=== PATIENT | female | born 1990 | race Caucasian/White ===

== ENCOUNTER 2017-08-29 05:58 | Emergency (ER) | payer OTHER ==
[~2017-08-29] VITALS: Ht 152.4 cm; Wt 59.0 kg
[2017-08-29 06:07] VITALS: Ht 152.4 cm; Wt 59.0 kg
[2017-08-29 07:06] VITALS: BP 106/50
== END 2017-08-29 07:06 | disposition home or self-care (01) ==
LOC: ED 05:58
DX: J09.X2 Influenza due to identified novel influenza A virus with other respiratory manifestations (principal)
CPT/HCPCS: 87804